=== PATIENT | male | born 1950 | race Caucasian/White ===

== ENCOUNTER 2020-10-09 18:05 | Emergency (ER) | payer MEDICARE, SELFPAY ==
[2020-10-09 18:11] VITALS: BP 124/82; PULSE 96; RESP 14; TEMP 37.1; O2SAT 95; BMI 25.8
--- NOTE | 2020-10-09 18:36 | XR_ITS ---
WS: [id number] Exam: XR chest 1V portable [id number] Date/Time of Exam: 10/09/2020 6:53 PM Reason For Exam: COVID eval, chest pain, SOB No priors. The lungs are clear. No pleural effusions or pneumothorax. Normal heart size. The mediastinum is not widened. Signs of median sternotomy. Regional bony structures are intact. XR/XR chest 1V portable [id number] IMPRESSION: 1. No acute cardiopulmonary finding.
[2020-10-09 18:37] LABS: Basophils % 0.3 %; Eosinophils # 0.2 10^3/uL (0.0-0.8); Eosinophils % 2.3 %; Hematocrit 53.3 % (42.0-52.0); Hemoglobin 17.2 g/dL (11.7-16.6); Lymphocytes # 1.6 10^3/uL (0.8-4.8); Mean Corpuscular HGB Conc 32.3 g/dL (30.0-36.0); Mean Corpuscular Hemoglobin 28.6 pg (28.0-34.0); Mean Corpuscular Volume 88.5 fL (80-94); Mean Platelet Volume 10.8 fL (7.4-10.4); Monocytes # 0.7 10^3/uL (0.2-0.9); Monocytes % 10.3 %; Neutrophils # 4.47 10^3/uL (1.8-7.7); Neutrophils % 63.7 %; Nucleated Red Blood Cells % 0 %; Platelet Count 180 10^3/cmm (130-400); Red Blood Count 6.02 10^6/uL (4.1-5.3); Red Cell Distribution Width 12.4 % (12.1-15.1)
--- NOTE | 2020-10-09 18:39 | ECG_ITS ---
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 Measurements Intervals [place] Rate: 96 P: 46 LA: 173 QRS: -87 QRSD: 130 T: 62 QT: 367 QTc: 464 Interpretive Statements SINUS RHYTHM POSSIBLE LEFT ATRIAL ENLARGEMENT [-0.1mV P WAVE IN V1/V2] RIGHT BUNDLE BRANCH BLOCK [120+ ms QRS DURATION, UPRIGHT V1, 40+ ms S IN I/aVL/V4/V5/V6] POSSIBLE ANTERIOR MYOCARDIAL INFARCTION , OF INDETERMINATE AGE [30 ms Q WAVE IN V3/V4, OR R < 0.2 mV IN V4] INFERIOR MYOCARDIAL INFARCTION , OF INDETERMINATE AGE [40+ ms Q WAVE AND/OR ST/T ABNORMALITY IN II/aVF] Compared to ECG 02/07/2017 12:39:06 Right-axis deviation no longer present Myocardial infarct finding still present Electronically Signed On 10-10-2020 21:46:02 SEAL MIXER by Juliann Ramirez M.D. [id number]
[2020-10-09 18:57] LABS: Calcium 8.9 mg/dL (8.5-10.5)
[2020-10-09 18:58] LABS: INR 0.96 (0.8-1.2)
--- NOTE | 2020-10-09 18:58 | ED_ITS ---
HPI - Nausea/Vomiting/Diarrhea General: Chief complaint: Nausea/Vomiting/Diarrhea Stated complaint: diarrhea, unwellness Time Seen by Provider: 10/09/20 18:17 History of Present Illness: HPI Narrative: This patient is a 70-year-old male who presents today with 4 days of diarrhea. He said is been severe, yellow and watery. He is feeling very weak and having trouble getting around. He said he has baseline difficulty with ambulation. He is not clear on why that is. 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 He seems to take care of his own healthcare issues and prescribes himself his own medications. He has been eating out in restaurants where he felt like there was not adequate social distancing. He does not know of any exposures to Covid but is realistic that he probably has had exposures in the community. He has felt fevers and chills although he has not documented a temperature. He denies abdominal pain. He has not had vomiting. He has had no appetite for 4 days. He has been drinking water. He feels short of breath with exertion. He feels lightheaded when he stands up. MD elicited complaint: diarrhea Onset (ago): day(s) (4) Description of diarrhea: watery and other (Yellow, no blood) Associated nausea: No Associated abdominal pain: No Severity: severe Relieving factors: none Associated symtoms: Reports decreased urine output, dizziness, fatigue, fevers/chills, anorexia, malaise, myalgias, short of breath and weakness; Denies change in vision, chest pain or nausea Review of Systems General: Reports: 10 or more systems reviewed and unremarkable except in HPI and below Const: Reports: fatigue and malaise Eyes: Denies: change in vision ENMT: Denies: odynophagia Card: Denies: chest pain or swelling of feet/ankles Resp: Denies: dyspnea, productive cough or non-productive cough GI: Reports: diarrhea; Denies: nausea : Denies: flank pain Musc: Denies: neck pain or back pain Skin/Breast: Denies: rash Neuro: Reports: weakness in extremities, difficulty walking and dizziness Julio/Lymph: Denies: easy bruising or easy bleeding [facility] PFSH: Medical History (Updated 10/09/20 @ 23:52 by Joselyn Banuelos MD) Atherosclerotic heart disease Diabetes Surgical History (Updated 10/09/20 @ 19:01 by Joselyn Banuelos MD) Hx of CABG Physical Exam Const: COMMON NORMALS: no acute distress, patient oriented x3, no limitations and alert GENERAL APPEARANCE: cooperative, ill appearing and frail appearing HENMT: HEAD & SCALP: normal to inspection FACE & SINUS: normal facial exam MOUTH: moist mucous membranes abnormal (Dry) Eye: GENERAL EYE: appearance normal, both eyes and all related structures Neck/C-Spine: COMMON NORMALS: supple, no meningeal signs and no JVD Chest: COMMONS NORMALS: normal inspection of the chest Resp: COMMON NORMALS: normal respiratory effort, No use of accessory muscles and clear to auscultation bilaterally AUSCULTATION: clear to auscultation bilaterally Cardio: COMMON NORMALS: no JVD, regular rate, regular rhythm and No murmurs present (Cardio) RATE: regular rate RHYTHM: regular rhythm GI: COMMON NORMALS: Normal to inspection, nondistended, normoactive bowel sounds present, Soft to palpation and non-tender INSPECTION: Yes normal to inspection AUSCULTATION: Yes normoactive bowel sounds PALPATION: Yes Soft to palpation Back/Pelvis: COMMON NORMALS: thoracic and lumbar spine normal to inspection Extremity: COMMON NORMALS: normal to inspection Neuro: COMMON NORMALS: patient oriented x3, moves all extremities, no focal motor deficits and no sensory deficits noted SENSORIUM/ORIENTATION: Yes alert MENINGEAL SIGNS: Yes no meningeal signs Psych: COMMON NORMALS: mental status grossly normal, cooperative and normal affect Skin: COMMON NORMALS: no rashes or lesions noted and turgor normal GENERAL SKIN EXAM: no rashes or lesions noted and turgor normal Course ED course: After fluids this patient was able to ambulate and felt like he was okay to go home. He initially told me that he thought he should be admitted and I had Dr. Isaacs evaluate him for admission. Apparently he and Dr. Isaacs came to the conclusion that he should probably go home. His Covid test was negative and his other labs were fairly unremarkable. He did have some dehydration but also a slight elevation in his BNP. Because of his diarrhea is not clear at this time but it is nonbloody and with his other normal labs I think he safe to go home. Vital Signs: Vital signs: Vital Signs Temperature 98.8 F 10/09/20 18:11 Pulse Rate 86 10/10/20 02:40 Respiratory Rate 18 10/10/20 02:40 Blood Pressure 177/94 10/10/20 02:40 Pulse Oximetry 96 10/10/20 02:40 MDM - Nausea/Vomiting/Diarrhea Lab Data: Labs: Lab Results 10/09/20 10/09/20 10/09/20 Range/Units 18:20 18:20 18:20 WBC (4.0-10.0) 10^3/ uL RBC (4.1-5.3) 10^6/u L Hgb (11.7-16.6) g/dL Hct (42.0-52.0) % MCV (80-94) fL MCH (28.0-34.0) pg MCHC (30.0-36.0) g/dL RDW (12.1-15.1) % Plt Count (130-400) 10^3/c mm MPV (7.4-10.4) fL Neut % (Auto) % Lymph % (Auto) % Wallace % (Auto) % Eos % (Auto) % Baso % (Auto) % Neut # (Auto) (1.8-7.7) 10^3/u L Lymph # (Auto) (0.8-4.8) 10^3/u L Wallace # (Auto) (0.2-0.9) 10^3/u L Eos # (Auto) (0.0-0.8) 10^3/u L Baso # (Auto) (0.0-0.1) 10^3/u L Nucleated RBC % (a uto) % Nucleated RBCs # /100WBC PT 13.00 (12.1-14.9) SECO NDS INR 0.96 (0.8-1.2) Fibrinogen 602 H (174-498) mg/dL D-Dimer 1.04 H (0-0.59) ug/mIFE U Sodium (136-145) mmol/L Potassium (3.5-5.1) mmol/L Chloride (98-107) mmol/L Carbon Dioxide (22-29) mmol/L Anion Gap (5-19) BUN (8-23) mg/dL Creatinine (0.7-1.2) mg/dL GFR Calculation (90-130) mL/min Glucose (65-115) mg/dL Calculated Osmolal ity (285-295) mOsm/k g Lactic Acid (0.5-2.2) mmol/L Lactic Acid (Sepsi s) (0.5-2.2) mmol/L Calcium (8.5-10.5) mg/dL Magnesium 1.9 (1.7-2.3) mg/dL Total Bilirubin (0.15-1.2) mg/dL AST (0-40) U/L ALT (0-41) U/L Alkaline Phosphata se (40-130) IU/L Lactate Dehydrogen ase 237 H (135-225) U/L Creatine Kinase 42 (39-308) U/L Troponin T Baselin e 33 H (0-15) ng/L Troponin T 120 Min [place] (0-15) ng/L Delta Troponin T (0-10) ABS# C-Reactive Protein 23.5 H (0.0-4.9) mg/L NT-Pro-B Natriuret Pep 996 H (0-125) pg/mL Total Protein (6.6-8.7) g/dL Albumin (3.5-5.2) g/dL Globulin (1.3-4.6) g/dL Procalcitonin 0.10 (0-0.5) ng/mL Urine Color (Yellow) Urine Appearance (CLEAR) Urine pH (5-7) Ur Specific Gravit y (1.005-1.030) Urine Protein (Negative) Urine Glucose (UA) (Normal) Urine Ketones (Negative) Urine Blood (Negative) Urine Nitrate (Negative) Urine Bilirubin (Negative) Urine Urobilinogen (Negative) mg/dL Ur Leukocyte Jennifer ase (Negative) Urine RBC (0-2) /hpf Urine WBC (0-5) /hpf Ur Squamous Epith Cells (0-5) /hpf Amorphous Sediment Urine Bacteria (NONE) /hpf Influenza Type A A g (Negative) Influenza Type B A g (Negative) SARS-CoV-2 Ag (Rap id) (Negative) 10/09/20 10/09/20 10/09/20 Range/Units 18:30 18:30 18:30 WBC 7.0 (4.0-10.0) 10^3/ uL RBC 6.02 H (4.1-5.3) 10^6/u L Hgb 17.2 H (11.7-16.6) g/dL Hct 53.3 H (42.0-52.0) % MCV 88.5 (80-94) fL MCH 28.6 (28.0-34.0) pg MCHC 32.3 (30.0-36.0) g/dL RDW 12.4 (12.1-15.1) % Plt Count 180 (130-400) 10^3/c mm MPV 10.8 H (7.4-10.4) fL Neut % (Auto) 63.7 % Lymph % (Auto) 23.0 % Wallace % (Auto) 10.3 % Eos % (Auto) 2.3 % Baso % (Auto) 0.3 % Neut # (Auto) 4.47 (1.8-7.7) 10^3/u L Lymph # (Auto) 1.6 (0.8-4.8) 10^3/u L Wallace # (Auto) 0.7 (0.2-0.9) 10^3/u L Eos # (Auto) 0.2 (0.0-0.8) 10^3/u L Baso # (Auto) 0.0 (0.0-0.1) 10^3/u L Nucleated RBC % (a uto) 0 % Nucleated RBCs # 0.0 /100WBC PT (12.1-14.9) SECO NDS INR (0.8-1.2) Fibrinogen (174-498) mg/dL D-Dimer (0-0.59) ug/mIFE U Sodium 132 L (136-145) mmol/L Potassium 4.7 (3.5-5.1) mmol/L Chloride 90 L (98-107) mmol/L Carbon Dioxide 22 (22-29) mmol/L Anion Gap 24.7 H (5-19) BUN 19 (8-23) mg/dL Creatinine 1.1 (0.7-1.2) mg/dL GFR Calculation 66.2 L (90-130) mL/min Glucose 213 H (65-115) mg/dL Calculated Osmolal ity 283 L (285-295) mOsm/k g Lactic Acid 2.7 H (0.5-2.2) mmol/L Lactic Acid (Sepsi s) (0.5-2.2) mmol/L Calcium 8.9 (8.5-10.5) mg/dL Magnesium (1.7-2.3) mg/dL Total Bilirubin 0.7 (0.15-1.2) mg/dL AST 31 (0-40) U/L ALT 15 (0-41) U/L Alkaline Phosphata se 73 (40-130) IU/L Lactate Dehydrogen ase (135-225) U/L Creatine Kinase (39-308) U/L Troponin T Baselin e (0-15) ng/L Troponin T 120 Min [place] (0-15) ng/L Delta Troponin T (0-10) ABS# C-Reactive Protein (0.0-4.9) mg/L NT-Pro-B Natriuret Pep (0-125) pg/mL Total Protein 8.0 (6.6-8.7) g/dL Albumin 4.3 (3.5-5.2) g/dL Globulin 3.7 (1.3-4.6) g/dL Procalcitonin (0-0.5) ng/mL Urine Color (Yellow) Urine Appearance (CLEAR) Urine pH (5-7) Ur Specific Gravit y (1.005-1.030) Urine Protein (Negative) Urine Glucose (UA) (Normal) Urine Ketones (Negative) Urine Blood (Negative) Urine Nitrate (Negative) Urine Bilirubin (Negative) Urine Urobilinogen (Negative) mg/dL Ur Leukocyte Jennifer ase (Negative) Urine RBC (0-2) /hpf Urine WBC (0-5) /hpf Ur Squamous Epith Cells (0-5) /hpf Amorphous Sediment Urine Bacteria (NONE) /hpf Influenza Type A A g (Negative) Influenza Type B A g (Negative) SARS-CoV-2 Ag (Rap id) (Negative) 10/09/20 10/09/20 10/09/20 Range/Units 18:50 18:50 19:30 WBC (4.0-10.0) 10^3/ uL RBC (4.1-5.3) 10^6/u L Hgb (11.7-16.6) g/dL Hct (42.0-52.0) % MCV (80-94) fL MCH (28.0-34.0) pg MCHC (30.0-36.0) g/dL RDW (12.1-15.1) % Plt Count (130-400) 10^3/c mm MPV (7.4-10.4) fL Neut % (Auto) % Lymph % (Auto) % Wallace % (Auto) % Eos % (Auto) % Baso % (Auto) % Neut # (Auto) (1.8-7.7) 10^3/u L Lymph # (Auto) (0.8-4.8) 10^3/u L Wallace # (Auto) (0.2-0.9) 10^3/u L Eos # (Auto) (0.0-0.8) 10^3/u L Baso # (Auto) (0.0-0.1) 10^3/u L Nucleated RBC % (a uto) % Nucleated RBCs # /100WBC PT (12.1-14.9) SECO NDS INR (0.8-1.2) Fibrinogen (174-498) mg/dL D-Dimer (0-0.59) ug/mIFE U Sodium (136-145) mmol/L Potassium (3.5-5.1) mmol/L Chloride (98-107) mmol/L Carbon Dioxide (22-29) mmol/L Anion Gap (5-19) BUN (8-23) mg/dL Creatinine (0.7-1.2) mg/dL GFR Calculation (90-130) mL/min Glucose (65-115) mg/dL Calculated Osmolal ity (285-295) mOsm/k g Lactic Acid (0.5-2.2) mmol/L Lactic Acid (Sepsi s) (0.5-2.2) mmol/L Calcium (8.5-10.5) mg/dL Magnesium (1.7-2.3) mg/dL Total Bilirubin (0.15-1.2) mg/dL AST (0-40) U/L ALT (0-41) U/L Alkaline Phosphata se (40-130) IU/L Lactate Dehydrogen ase (135-225) U/L Creatine Kinase (39-308) U/L Troponin T Baselin e (0-15) ng/L Troponin T 120 Min [place] (0-15) ng/L Delta Troponin T (0-10) ABS# C-Reactive Protein (0.0-4.9) mg/L NT-Pro-B Natriuret Pep (0-125) pg/mL Total Protein (6.6-8.7) g/dL Albumin (3.5-5.2) g/dL Globulin (1.3-4.6) g/dL Procalcitonin (0-0.5) ng/mL Urine Color Yellow (Yellow) Urine Appearance Clear (CLEAR) Urine pH 5.0 (5-7) Ur Specific Gravit y 1.025 (1.005-1.030) Urine Protein 3+ H (Negative) Urine Glucose (UA) 4+ H (Normal) Urine Ketones 2+ H (Negative) Urine Blood Neg (Negative) Urine Nitrate Negative (Negative) Urine Bilirubin Neg (Negative) Urine Urobilinogen Norm (Negative) mg/dL Ur Leukocyte Jennifer ase Negative (Negative) Urine RBC None (0-2) /hpf Urine WBC 0-4 H (0-5) /hpf Ur Squamous Epith Cells None (0-5) /hpf Amorphous Sediment Not Reportable Urine Bacteria Trace (NONE) /hpf Influenza Type A A g Negative (Negative) Influenza Type B A g Negative (Negative) SARS-CoV-2 Ag (Rap id) Negative (Negative) 10/09/20 10/09/20 Range/Units 21:12 21:12 WBC (4.0-10.0) 10^3/ uL RBC (4.1-5.3) 10^6/u L Hgb (11.7-16.6) g/dL Hct (42.0-52.0) % MCV (80-94) fL MCH (28.0-34.0) pg MCHC (30.0-36.0) g/dL RDW (12.1-15.1) % Plt Count (130-400) 10^3/c mm MPV (7.4-10.4) fL Neut % (Auto) % Lymph % (Auto) % Wallace % (Auto) % Eos % (Auto) % Baso % (Auto) % Neut # (Auto) (1.8-7.7) 10^3/u L Lymph # (Auto) (0.8-4.8) 10^3/u L Wallace # (Auto) (0.2-0.9) 10^3/u L Eos # (Auto) (0.0-0.8) 10^3/u L Baso # (Auto) (0.0-0.1) 10^3/u L Nucleated RBC % (a uto) % Nucleated RBCs # /100WBC PT (12.1-14.9) SECO NDS INR (0.8-1.2) Fibrinogen (174-498) mg/dL D-Dimer (0-0.59) ug/mIFE U Sodium (136-145) mmol/L Potassium (3.5-5.1) mmol/L Chloride (98-107) mmol/L Carbon Dioxide (22-29) mmol/L Anion Gap (5-19) BUN (8-23) mg/dL Creatinine (0.7-1.2) mg/dL GFR Calculation (90-130) mL/min Glucose (65-115) mg/dL Calculated Osmolal ity (285-295) mOsm/k g Lactic Acid (0.5-2.2) mmol/L Lactic Acid (Sepsi s) 1.0 (0.5-2.2) mmol/L Calcium (8.5-10.5) mg/dL Magnesium (1.7-2.3) mg/dL Total Bilirubin (0.15-1.2) mg/dL AST (0-40) U/L ALT (0-41) U/L Alkaline Phosphata se (40-130) IU/L Lactate Dehydrogen ase (135-225) U/L Creatine Kinase (39-308) U/L Troponin T Baselin e (0-15) ng/L Troponin T 120 Min [place] 29.39 H (0-15) ng/L Delta Troponin T -3.61 L (0-10) ABS# C-Reactive Protein (0.0-4.9) mg/L NT-Pro-B Natriuret Pep (0-125) pg/mL Total Protein (6.6-8.7) g/dL Albumin (3.5-5.2) g/dL Globulin (1.3-4.6) g/dL Procalcitonin (0-0.5) ng/mL Urine Color (Yellow) Urine Appearance (CLEAR) Urine pH (5-7) Ur Specific Gravit y (1.005-1.030) Urine Protein (Negative) Urine Glucose (UA) (Normal) Urine Ketones (Negative) Urine Blood (Negative) Urine Nitrate (Negative) Urine Bilirubin (Negative) Urine Urobilinogen (Negative) mg/dL Ur Leukocyte Jennifer ase (Negative) Urine RBC (0-2) /hpf Urine WBC (0-5) /hpf Ur Squamous Epith Cells (0-5) /hpf Amorphous Sediment Urine Bacteria (NONE) /hpf Influenza Type A A g (Negative) Influenza Type B A g (Negative) SARS-CoV-2 Ag (Rap id) (Negative) Discharge Plan Discharge Patient Disposition: Home Clinical Impression: Acute dehydration Diarrhea Qualifiers: Diarrhea type: unspecified type Qualified Code(s): R19.7 - Diarrhea, unspecified Diabetes Qualifiers: Diabetes mellitus type: type 2 Diabetes mellitus intermediate insulin use: without terminal superintendent use Diabetes mellitus complication status: with other specified complication Qualified Code(s): E11.69 - Type 2 diabetes mellitus with other specified complication Condition: Stable Prescriptions: No Action aspirin 325 mg Tablet 325 mg PO PRN RF: 0 nitroglycerin 0.4 mg tablet, sublingual See Rx Instructions .ROUTE .COMPLEX RF: 0 Discharge Orders: Discharge Order (Routine); Ordered 10/09/20 Ordered By: Joselyn Banuelos Discharge Diet: Advance as tolerated Discharge Activity: Resume usual activity Patient Instructions: Acute Diarrhea (ED) Activity Restrictions/Additional Instructions: Make sure to drink plenty of fluids including electrolytes. Return to the ER if not improving, if abdominal pain, fever or any other concerns. Coding Level of Care Code ED School Attendance Secretary for Sharyn Fwd Exam Comprehensive
[2020-10-09 18:59] LABS: Fibrinogen 602 mg/dL (174-498)
[2020-10-09 19:02] LABS: D Dimer 1.04 ug/mIFEU (0-0.59)
[2020-10-09 19:29] LABS: Alanine Aminotransferase 15 U/L (0-41); Albumin Level 4.3 g/dL (3.5-5.2); Alkaline Phosphatase 73 IU/L (40-130); Blood Urea Nitrogen 19 mg/dL (8-23); Carbon Dioxide 22 mmol/L (22-29); Chloride 90 mmol/L (98-107); Globulin 3.7 g/dL (1.3-4.6); Glomerular Filtration Rate 66.2 mL/min (90-130); Glucose 213 mg/dL (65-115); Osmolality Calculated 283 mOsm/kg (285-295); Sodium 132 mmol/L (136-145); Total Bilirubin 0.7 mg/dL (0.15-1.2)
[2020-10-09 19:30] LABS: Lactic Sepsis W/Reflex 2.7 mmol/L (0.5-2.2)
[2020-10-09 19:35] VITALS: BP 147/95; PULSE 95; RESP 18; O2SAT 94
[2020-10-09 19:36] LABS: Anion Gap 24.7 (5-19); Potassium 4.7 mmol/L (3.5-5.1)
[2020-10-09 19:37] LABS: Aspartate Amino Transferase 31 U/L (0-40)
[2020-10-09 19:38] LABS: C Reactive Protein 23.5 mg/L (0.0-4.9); Creatine Phosphokinase 42 U/L (39-308); Magnesium 1.9 mg/dL (1.7-2.3); NT Pro B Type Natriuretic Pept 996 pg/mL (0-125)
[2020-10-09 19:41] LABS: Lactate Dehydrogenase 237 U/L (135-225)
[2020-10-09 20:04] LABS: Influenza A by IFA Negative (Negative); Influenza B by IFA Negative (Negative); SARS Covid-2 Antigen Negative (Negative)
[2020-10-09 20:06] LABS: Troponin(5th) Baseline 33 ng/L (0-15)
[2020-10-09 20:19] LABS: Specific Gravity, Urine 1.025 (1.005-1.030); Urine Appearance Clear (CLEAR); Urine Color Yellow (Yellow)
[2020-10-09 20:20] LABS: Add Urine Microscopic? YES; Bilirubin Urine Neg (Negative); Blood Urine Neg (Negative); Glucose Urine UA 4+ (Normal); Ketones Urine 2+ (Negative); Leukocyte Esterase Urine Negative (Negative); Nitrate Urine Negative (Negative); Protein Urine 3+ (Negative); Urobilinogen Urine Norm (Negative)
[2020-10-09 20:21] LABS: Add Urine Culture? No; Bacteria Urine TRACE /hpf; WBC Urine 0-4 /hpf (0-5)
[2020-10-09 20:23] LABS: Reflex Lactate Order REFLEX LACTIC ORDERD
--- NOTE | 2020-10-09 20:39 | ECG_ITS ---
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 Measurements Intervals [place] Rate: 93 P: 59 ME: 180 QRS: -78 QRSD: 119 T: 61 QT: 355 QTc: 444 Interpretive Statements SINUS RHYTHM POSSIBLE LEFT ATRIAL ENLARGEMENT [-0.1mV P WAVE IN V1/V2] RIGHT BUNDLE BRANCH BLOCK POSSIBLE ANTERIOR MYOCARDIAL INFARCTION , OF INDETERMINATE AGE INFERIOR MYOCARDIAL INFARCTION , INDETERMINATE AGE Compared to ECG 10/09/2020 19:49:38 No significant changes Electronically Signed On 10-11-2020 8:07:14 [employer]CEAN LIFE[employer]ARD by Juliann Ramirez M.D. [id number]
[2020-10-09 21:42] LABS: Troponin 5 2HR 29.39 ng/L (0-15)
[2020-10-09 21:43] LABS: Troponin 5 2HR Delta -3.61 ABS# (0-10)
--- NOTE | 2020-10-09 23:20 | P.HP_ITS ---
Providers/Chief Complaint Chief Complaint: diarhea, unwellness History of Present Illness Santos Berman is a 70 year old male Medications/Allergies Home Medications Medication Instructions Recorded Confirmed Last Taken Type aspirin 325 mg PO PRN 10/09/20 10/09/20 Unknown History nitroglycerin See Rx Instructions .ROUTE .COMPLEX 10/09/20 10/09/20 Unknown History Allergies Allergy/AdvReac Type Severity Reaction Status Date / Time No Known Allergies Allergy Verified 10/09/20 19:22 PFSH Acute PFSH: Medical History (Updated 10/09/20 @ 19:01 by Joselyn Banuelos MD) Atherosclerotic heart disease Diabetes Surgical History (Updated 10/09/20 @ 19:01 by Joselyn Banuelos MD) Hx of CABG Vitals/I&O/Wt Last Vital Signs Temp 98.8 F 10/09/20 18:11 Pulse 95 10/09/20 19:35 Resp 18 10/09/20 19:35 BP 147/95 10/09/20 19:35 Pulse Ox 94 10/09/20 19:35 Weight last 48 hrs Weight 79.379 kg Data : 10/09/20 18:30 10/09/20 18:30 Coding Level of Care Code Acute Linen Room Attendant for Sharyn Machado
[2020-10-09 23:27] VITALS: BP 166/101; PULSE 97; RESP 12; O2SAT 94
[2020-10-09] MEDS: sodium chloride 0.9% 1,000 ML 999 ML IV (23:59)
[2020-10-10] MEDS: loperamide 2 mg Capsule 4 MG PO (00:01)
[2020-10-10 02:40] VITALS: BP 177/94; PULSE 86; RESP 18; O2SAT 96
== END 2020-10-10 02:41 | disposition home or self-care (01) ==
LOC: ER 18:45 → MEDSURG 23:52
PROVIDERS: Emergency Provider Emergency Medicine
DX: R19.7 Diarrhea, unspecified (principal); E86.0 Dehydration; E11.69 Type 2 diabetes mellitus with other specified complication; Z79.82 Long term (current) use of aspirin; Z95.1 Presence of aortocoronary bypass graft; R07.9 Chest pain, unspecified
CPT/HCPCS: 12345; 71045; 80053; 81001; 82550; 83605; 83615; 83735; 83880; 84145; 84484; 85025; 85378; 85384; 85610; 86140; 87426; 87804; 93005; 96360; 99283; 99284; J7030